=== PATIENT | female | born 2000 | race Caucasian/White ===

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

== ENCOUNTER 2019-03-22 18:09 | Emergency (ER) | payer OTHER ==
[~2019-03-22] VITALS: Ht 167.6 cm; Wt 73.9 kg
[2019-03-22 18:22] VITALS: BP 110/69
--- NOTE | 2019-03-22 18:23 | NUR ---
TRIAGE COMPLETE. VSS. OKAY TO WAIT IN LOBBY FOR BED IN ED.
--- NOTE | 2019-03-22 20:33 | NUR ---
PT AMBULATED TO BED 12.
--- NOTE | 2019-03-22 20:43 | NUR ---
17 Y/O FEMALE C/O OF BLEEDING AFTER CYST REMOVAL ON BRIDGE OF NOSE X 1 DAY AGO. PATIENT REPORTED BLEEDING FROM SITE X 30 MINS AGO. NO ACTIVE BLEEDING AT THIS TIME. DENIES ANY PAIN OR N/V/D. SHE ALSO STATED THAT SHE HAD A HEADACHE EARLIER PRIOR COMING TO THE ER, HOWEVER, NO COMPLAINTS OF A HEADACHE AT THIS TIME. A/OX4 ABLE TO FOLLOW COMMANDS. PERRLA +3. ERMD MADE AWARE OF STATUS. SIDERAILSX1. MOTHER AND SIBLING AT BEDSIDE. PMH:FIBROMYALGIA; DEPRESSION; ANXIETY RX:NO CURRENT MEDICATIONS NOTED NKDA
[2019-03-22 21:47] VITALS: BP 110/69
--- NOTE | 2019-03-22 21:47 | NUR ---
Patient discharged with v/s stable. Written and verbal after care instructions given and explained. Patient verbalized understanding. Ambulatory with steady gait. All questions addressed prior to discharge. Advised to follow up with PMD.
== END 2019-03-22 21:47 | disposition home or self-care (01) ==
LOC: MED 18:09
DX: L76.21 Postprocedural hemorrhage of skin and subcutaneous tissue following a dermatologic procedure (principal); Y83.8 Other surgical procedures as the cause of abnormal reaction of the patient, or of later complication, without mention of misadventure at the time of the procedure; Y92.89 Other specified places as the place of occurrence of the external cause
CPT/HCPCS: 99281

== ENCOUNTER 2019-07-05 12:44 | Emergency (ER) | payer MEDICAID, OTHER ==
[~2019-07-05] VITALS: Ht 165.1 cm; Wt 67.6 kg
[2019-07-05 13:21] VITALS: BP 106/60
--- NOTE | 2019-07-05 13:31 | NUR ---
Triage completed, assisted out to ER lobby in WC to wait for room.
--- NOTE | 2019-07-05 13:51 | NUR ---
PT TO ER BED 12
--- NOTE | 2019-07-05 13:55 | NUR ---
PT PRESENTS TO ED FOR EVALUATION OF LT ANKLE PAIN. PT STATED LT LEG TWISTED SINCE YESTERDAY. PT AAO X4, GCS 15, AMBULATORY WITH UNSTEADY GAIT DUE TO PAIN. SKIN WARM/PINK/DRY, +PMSC. LT LEG NO APPARENT INJURY, NO DEFORMITY. VS WNL. WILL CONTINUE TO MONITOR
--- NOTE | 2019-07-05 15:00 | NUR ---
Patient discharged with v/s stable. Written and verbal after care instructions given and explained. Patient alert, oriented and verbalized understanding of instructions. Ambulatory with steady gait. All questions addressed prior to discharge. ID band removed. Patient advised to follow up with PMD. Rx of MITRIN 400 MG given. Patient educated on indication of medication including possible reaction and side effects. Opportunity to ask questions provided and answered.
[2019-07-05 15:01] VITALS: BP 110/65
== END 2019-07-05 15:00 | disposition home or self-care (01) ==
LOC: MED 12:44
DX: S93.402A Sprain of unspecified ligament of left ankle, initial encounter (principal); F41.9 Anxiety disorder, unspecified; F32.9 Major depressive disorder, single episode, unspecified; Z98.890 Other specified postprocedural states; W22.8XXA Striking against or struck by other objects, initial encounter; Y93.01 Activity, walking, marching and hiking; Y92.89 Other specified places as the place of occurrence of the external cause; Y99.8 Other external cause status
CPT/HCPCS: 73610; 99283; Q0092

== ENCOUNTER 2020-11-23 19:51 | Emergency (ER) | payer MEDICAID, OTHER ==
[~2020-11-23] VITALS: Ht 170.2 cm; Wt 71.2 kg
[2020-11-23 20:02] VITALS: BP 117/76
[2020-11-23] MEDS ORDERED: ACETAMINOPHEN EXTRA STRENGTH 500 MG TAB PO ONE (20:35)
[2020-11-23 20:46] LABS: BASOPHILS # (AUTO) 0.1 K/uL (0.00-0.22); BASOPHILS % (AUTO) 3.1 % (0.0-2.0); EOSINOPHILS # (AUTO) 0.1 K/uL (0-0.4); EOSINOPHILS % (AUTO) 4.3 % (0.0-4.0); HEMATOCRIT 39.9 % (36-48); HEMOGLOBIN 13.2 g/dL (12.0-16.0); LYMPHOCYTES # (AUTO) 0.8 K/uL (2.5-16.5); LYMPHOCYTES % (AUTO) 24.1 % (20.5-51.1); MEAN CORPUSCULAR HEMOGLOBIN 29 pg (27-31); MEAN CORPUSCULAR HGB CONC 33 g/dL (33-37); MEAN CORPUSCULAR VOLUME 87.8 fL (80-94); MONOCYTES # (AUTO) 0.3 K/uL (0.8-1.0); MONOCYTES % (AUTO) 7.3 % (1.7-9.3); NEUTROPHILS # (AUTO) 2.1 K/uL (1.8-7.7); NEUTROPHILS % (AUTO) 61.2 % (42.2-75.2); PLATELET COUNT (AUTO) 213 K/uL (140-450); RED BLOOD CELL COUNT(AUTO) 4.55 MIL/uL (4.20-5.40); RED CELL DISTRIBUTION WIDTH 13.4 % (11.6-13.7); WHITE BLOOD COUNT (AUTO) 3.4 K/uL (4.8-10.8)
[2020-11-23 21:00] LABS: ALBUMIN 4.1 g/dL (3.4-5.0); CREATININE 0.8 mg/dL (0.6-1.3); TOTAL BILIRUBIN 0.2 mg/dL (0.0-1.0)
[2020-11-23 21:10] LABS: BARBITURATE, URINE NEGATIVE ng/ml (NEG <=200); BENZODIAZEPINE, URINE NEGATIVE ng/mL (NEG <=200); CANNABINOID, URINE NEGATIVE ng/mL (NEG <=50); COCAINE, URINE NEGATIVE ng/mL (NEG <=300); OPIATE, URINE NEGATIVE ng/mL (NEG <=2000); PHENCYCLIDINE SCREEN,URINE NEGATIVE ng/mL (NEG <=25)
[2020-11-23] MEDS ORDERED: NACL 0.9% 1,000 ML IV ONE (21:30)
[2020-11-24] MEDS ORDERED: NAPR-54 PO (00:09)
[2020-11-24 00:19] VITALS: BP 117/76
== END 2020-11-24 00:19 | disposition home or self-care (01) ==
LOC: MED 19:51
DX: S09.90XA Unspecified injury of head, initial encounter (principal); R55 Syncope and collapse; R42 Dizziness and giddiness; Z79.899 Other long term (current) drug therapy; Z98.890 Other specified postprocedural states; X58.XXXA Exposure to other specified factors, initial encounter; Y93.89 Activity, other specified; Y92.89 Other specified places as the place of occurrence of the external cause; Y99.8 Other external cause status
CPT/HCPCS: 36415; 70450; 71045; 71275; 72125; 80053; 80305; 81002; 81025; 83690; 84484; 85025; 85379; 93005; 96360; 99285; J7030; Q9967

== ENCOUNTER 2021-02-16 18:27 | Emergency (ER) | payer OTHER ==
[~2021-02-16] VITALS: Ht 167.6 cm; Wt 70.3 kg
[~2021-02-16 18:27] MED LIST: NAPR-54 PO
[2021-02-16 18:33] VITALS: BP 115/71
--- NOTE | 2021-02-16 18:42 | NUR ---
[facility] INCIDENT#[id number]
[2021-02-16] MEDS ORDERED: KETOROLAC 60 MG/2 ML VIAL IM ONE (19:05)
[2021-02-16] MEDS ORDERED: IBUP-2213 PO (19:10)
[2021-02-16 19:15] VITALS: BP 115/71
--- NOTE | 2021-02-16 19:15 | NUR ---
SEE COMPLETE ASSESSMENT
== END 2021-02-16 19:25 | disposition home or self-care (01) ==
LOC: MED 18:27
DX: S50.02XA Contusion of left elbow, initial encounter (principal); S00.83XA Contusion of other part of head, initial encounter; Y04.0XXA Assault by unarmed brawl or fight, initial encounter; Y93.89 Activity, other specified; Y92.89 Other specified places as the place of occurrence of the external cause; Y99.8 Other external cause status
CPT/HCPCS: 96372; 99283; J1885